=== PATIENT | male | born 1990 | race Caucasian/White ===

== ENCOUNTER 2022-11-30 15:20 | Emergency (ER) | payer MEDICAID ==
[~2022-11-30] VITALS: Ht 182.9 cm; Wt 86.2 kg
[2022-11-30 16:52] LABS: APPEARANCE,URINE TURBID (CLEAR); BILIRUBIN,URINE NEGATIVE (NEGATIVE); COLOR,URINE YELLOW (YELLOW); GLUCOSE, URINE (UA) NEGATIVE (NEGATIVE); KETONES,URINE NEGATIVE (NEGATIVE); LEUKOCYTE ESTERASE ,URINE NEGATIVE Leu/uL (NEGATIVE); NITRATE,URINE NEGATIVE (NEGATIVE); OCCULT BLOOD,URINE NEGATIVE (NEGATIVE); PROTEIN,URINE NEGATIVE (NEGATIVE); UROBILINOGEN,URINE 0.2 mg/dL (0.2-1.0)
[2022-11-30 17:11] LABS: BACTERIA,URINE RARE /HPF (None Seen); WBC,URINE 0-1 /HPF (0-1); YEAST,URINE BUDDING MOD /HPF (None Seen)
[2022-11-30 17:57] VITALS: BP 119/65
[2022-11-30] MEDS ORDERED: PENICILLIN G BENZATHINE LA 1.2 MILUNITS/2 ML SYG IM ONE (18:00)
[2022-11-30 19:08] LABS: RAPID PLASMA REAGIN NONREACTIVE (NONREACTIVE)
== END 2022-11-30 17:57 | disposition home or self-care (01) ==
LOC: EDH 15:20
DX: N48.29 Other inflammatory disorders of penis (principal); Z20.2 Contact with and (suspected) exposure to infections with a predominantly sexual mode of transmission
CPT/HCPCS: 99283; 86592; 86701; 87390; 81001; 36415; 96372; J0561